=== PATIENT | female | born 2000 | race Caucasian/White ===

== ENCOUNTER 2021-01-05 10:33 | Outpatient (CLI) | payer OTHER, SELFPAY ==
[2021-01-05 12:07] LABS: Basophils Percent Auto 0.3 % (0.2-1.2); Eosinophils Absolute Auto 0.1 K/mm3 (0-0.3); Eosinophils Percent Auto 1.3 % (0-4.4); Hematocrit 38.6 % (37.0-47.0); Hemoglobin 12.9 g/dL (12.0-15.0); Immature Granulocyte Absolute 0.04 K/mm3 (0.00-0.031); Immature Granulocyte Percent A 0.4 % (0-0.5); Lymphocytes Absolute Auto 1.14 K/mm3 (0.9-3.2); Lymphocytes Percent Auto 11.2 % (18.3-44.2); Mean Corpuscular HGB Conc 33.4 g/dl (32-36); Mean Corpuscular Hemoglobin 31.5 pg (26-34); Mean Corpuscular Volume 94.4 fl (80-100); Mean Platelet Volume 10.8 fl (7.4-10.4); Monocytes Absolute Auto 0.5 K/mm3 (0.1-0.6); Monocytes Percent Auto 4.8 % (2.6-8.5); Neutrophils Absolute Auto 8.3 K/mm3 (1.3-6.7); Platelet Count Result 178 k/mm3 (150-375); Red Blood Count 4.09 M/mm3 (4.2-5.4); Red Cell Distribution Width 12.2 % (11.5-14.5); White Blood Count 10.1 K/mm3 (4.5-10.0)
[2021-01-05 12:23] LABS: Glucose 1 Hour PP 50gm Dose 112 mg/dL
[2021-01-05 13:05] LABS: HIV 1/2 Ab P24 Ag Result Negative (Negative)
[2021-01-07 09:39] LABS: Rapid Plasma Reagin Non-Reactive (NonReactive)
== END 2021-01-05 10:34 | disposition home or self-care (01) ==
PROVIDERS: PCP Pediatrics; Visit Provider Advanced Practice Midwife
DX: Z36.9 Encounter for antenatal screening, unspecified (principal); Z3A.00 Weeks of gestation of pregnancy not specified
CPT/HCPCS: 36415; 82947; 85025; 86592; 86703; 86850; G0432

== ENCOUNTER 2021-01-22 17:19 | Emergency (ER) | payer OTHER, SELFPAY ==
--- NOTE | ~2021-01-22 | XR_ITS ---
EXAMINATION: XR chest 2V 01/22/2021 17:43 INDICATION: Cough. Upper respiratory infection. PROCEDURE: 2 view chest COMPARISON: No prior studies for comparison. FINDINGS: The lungs are clear. The cardiomediastinal silhouette is within normal limits. There are no pleural effusions. There is no pneumothorax suspected. IMPRESSION: 1: NO ACUTE CARDIOPULMONARY DISEASE. Reviewed, dictated and finalized at location A. IFICATION WRITER
[2021-01-22 17:22] VITALS: BP 125/98; PULSE 110; RESP 18; TEMP 35.9; O2SAT 100
[2021-01-22 17:33] LABS: Basophils Percent Auto 0.4 % (0.2-1.2); Eosinophils Absolute Auto 0.2 K/mm3 (0-0.3); Eosinophils Percent Auto 1.5 % (0-4.4); Hematocrit 36.5 % (37.0-47.0); Hemoglobin 12.3 g/dL (12.0-15.0); Immature Granulocyte Absolute 0.07 K/mm3 (0.00-0.031); Immature Granulocyte Percent A 0.7 % (0-0.5); Lymphocytes Percent Auto 11.8 % (18.3-44.2); Mean Corpuscular HGB Conc 33.7 g/dl (32-36); Mean Corpuscular Hemoglobin 31.8 pg (26-34); Mean Corpuscular Volume 94.3 fl (80-100); Mean Platelet Volume 10.5 fl (7.4-10.4); Monocytes Absolute Auto 0.7 K/mm3 (0.1-0.6); Monocytes Percent Auto 6.4 % (2.6-8.5); Neutrophils Percent Auto 79.2 % (45.5-73.1); Platelet Count Result 154 k/mm3 (150-375); Red Blood Count 3.87 M/mm3 (4.2-5.4); Red Cell Distribution Width 12.3 % (11.5-14.5); White Blood Count 10.1 K/mm3 (4.5-10.0)
[2021-01-22 17:43] LABS: Alanine Aminotransferase 13 U/L (4-35); Albumin Level 3.7 g/dL (3.5-5.1); Alkaline Phosphatase 77 U/L (38-126); Anion Gap 5 mmol/L (8-16); Aspartate Amino Transferase 22 U/L (14-36); Bilirubin,Total 0.3 mg/dL (0.2-1.3); Blood Urea Nitrogen 9 mg/dL (7-17); Calcium 9.4 mg/dL (8.4-10.2); Carbon Dioxide 26 mmol/L (22-30); Chloride 105 mmol/L (98-107); Estimated CRCL calculation 135 ml/min; Estimated Glomerular Filt Rate > 60; Glucose 91 mg/dL (65-110); Potassium 3.6 mmol/L (3.4-5.0); Sodium 136 mmol/L (137-145)
--- NOTE | 2021-01-22 18:37 | ED.GENADULT ---
HPI - General Adult General Chief complaint: Upper Respiratory Infection Stated complaint: Wants Lungs Checked Time Seen by Provider: 01/22/21 18:02 Source: patient Mode of arrival: ambulatory Limitations: no limitations History of Present Illness HPI narrative: Patient is 20-year-old female 29 weeks G2, P0 with chief complaint of feeling short of breath when she lays flat. Patient reports when she is sitting up, walking or talking she does not notice the symptoms. However when she lays flat she feels as if her lungs cannot fully expand. Patient reports that she has expressed this to her [employer] Dr. Painter who prescribed her an inhaler. Patient denies having any fevers, chills, cough, shortness of breath, chest pain. Patient denies any wheezing or issues with her airway. Patient denies any calf pain or swelling. Patient denies any pain with respirations. Related Data Allergies Allergy/AdvReac Type Severity Reaction Status Date / Time No Known Allergies Allergy Verified 01/27/12 17:06 Review of Systems Review of Systems: CONSTITUTIONAL: Denies fever, chills, or sweats. EYES: Denies visual changes, redness, or discharge. ENT: Denies rhinorrhea, congestion, sore throat, or otalgia. CARDIOVASCULAR: Denies chest pain, palpitations, or edema. RESPIRATORY: Reports bleeding sensation when lying flat denies cough or dyspnea. GASTROINTESTINAL: Denies abdominal pain, nausea, vomiting, or diarrhea. GENITOURINARY: Denies dysuria or hematuria. SKIN: Denies rash or itching. MUSCULOSKELETAL: Denies back pain, joint pain, or myalgia. NEUROLOGIC: Denies headache, numbness, dizziness, or weakness. PSYCHIATRIC: Denies anxiety or depression. Exam Narrative: GENERAL: Well-appearing, well-nourished, and in no acute distress. HEAD: Normocephalic, atraumatic. EYES: PERRLA and EOMI. NECK: Supple. No adenopathy or masses. CHEST: Clear to auscultation. No respiratory distress. No wheezes rales or rhonchi. No tachypnea. No cough. Patient speaking in clear sentences without discomfort or distress. HEART: Regular rate and rhythm. No murmur heard. Normal peripheral pulses. EXTREMITIES: Normal range of motion. No edema or tenderness to calves. SKIN: Warm, dry, no rash. NEURO: No focal deficits. Alert and oriented x3. PSYCH: Normal mood and affect. Course Vital Signs Vital signs: Vital Signs Temperature 96.6 F L 01/22/21 17:22 Pulse Rate 110 H 01/22/21 17:22 Respiratory Rate 18 01/22/21 17:22 Blood Pressure 125/98 H 01/22/21 17:22 Pulse Oximetry 100 01/22/21 17:22 Temperature 96.6 F L 01/22/21 17:22 Pulse Rate 110 H 01/22/21 17:22 Respiratory Rate 18 01/22/21 17:22 Blood Pressure 125/98 H 01/22/21 17:22 Pulse Oximetry 100 01/22/21 17:22 Medical Decision Making MDM Narrative Medical decision making narrative: Patient is not having any signs of distress. Patient not hypoxic and satting 100% on room air. Patient has not have swelling or tenderness suggestive of DVT or PE. Patient reports she does not have any shortness of breath or difficulty breathing with ambulation. Daily times she feels as if her lungs are not fully expanding when she is lying down. Patient is 30 weeks . Patient's OB is aware. Patient disharged home to follow up with OBGYN. Vital Signs Vital Signs: Vital Signs Temperature 96.6 F L 01/22/21 17:22 Pulse Rate 110 H 01/22/21 17:22 Respiratory Rate 18 01/22/21 17:22 Blood Pressure 125/98 H 01/22/21 17:22 Pulse Oximetry 100 01/22/21 17:22 Temperature 96.6 F L 01/22/21 17:22 Pulse Rate 110 H 01/22/21 17:22 Respiratory Rate 18 01/22/21 17:22 Blood Pressure 125/98 H 01/22/21 17:22 Pulse Oximetry 100 01/22/21 17:22 Lab Data Result diagrams: 01/22/21 17:28 01/22/21 17:28 Labs: Lab Results 01/22/21 01/22/21 Range/Units 17:28 17:28 WBC 10.1 H (4.5-10.0) K/mm3 RBC 3.87 L (4.2-5.4) M/mm3 Hgb 12.3 (12
== END 2021-01-22 19:08 | disposition home or self-care (01) ==
PROVIDERS: Emergency Provider Emergency Medicine
DX: R06.02 Shortness of breath (principal); O26.93 Pregnancy related conditions, unspecified, third trimester; Z3A.29 29 weeks gestation of pregnancy
CPT/HCPCS: 36415; 71046; 80053; 85025; 99283

== ENCOUNTER 2021-03-08 00:01 | Outpatient (RCR) | payer OTHER, SELFPAY ==
[2021-01-22 17:25] VITALS: BP 116/69; PULSE 102
[2021-03-08 00:40] VITALS: BP 120/78; PULSE 85
== END 2021-04-15 08:35 | disposition home or self-care (01) ==
LOC: ANHOBOP 00:01
PROVIDERS: PCP Pediatrics; Visit Provider Student in an Organized Health Care Education/Training Program
DX: O99.891 Other specified diseases and conditions complicating pregnancy (principal); R06.00 Dyspnea, unspecified; Z3A.29 29 weeks gestation of pregnancy; Z3A.35 35 weeks gestation of pregnancy
CPT/HCPCS: 59025

== ENCOUNTER 2021-03-22 14:31 | Observation (INO) | payer OTHER, SELFPAY ==
[2021-03-22 14:56] VITALS: BP 120/74; PULSE 109
[2021-03-22 15:04] VITALS: BMI 28.6
--- NOTE | 2021-03-22 15:05 | OBADM ---
This patient, Cesia Pyle, admitted to the OB room OB Post 116 for observation. Patient/family oriented to hospital policies and general routines including ID bracelet, bed and alarms, visiting hours, pain management, procedures, bathroom and other care routines, personal items, smoking policy, room service/diet, and visiting hours. Patient/Family are encouraged to report perceived risks to care and to ask questions if they do not understand what they are told or what they should do.
[2021-03-22 15:20] LABS: Add Urine Microscopic? NO; Appearance Urine Clear (Clear); Bilirubin Urine Negative (Negative); Blood Urine Negative (Negative); Color Urine Straw (Yellow); Glucose Urine UA Negative (Negative); Ketones Urine Negative (Negative); Leukocyte Esterase Ur Negative LEU/UL (Negative); Nitrate Urine Negative (Negative); Protein Urine Negative (Negative); Specific Grav Ur 1.008 (1.001-1.035); Urobilinogen Urine Negative mg/dL (<2.0)
[2021-03-22 15:46] VITALS: TEMP 36.6
--- NOTE | 2021-03-27 05:56 | P.PNOB_ITS ---
OB - Triage/Final Diagnosis Visit Information Date of evaluation: 03/22/21 Reason for evaluation: other (r/o cystitis ) Comments/Additional reasons for admission: I have assessed the risk for this patient, Cesia Pyle, and determined that she would benefit from observation care. Evaluation Laboratory results: Laboratory Tests 03/22/21 14:52 Urine Color Straw Urine Appearance Clear Urine pH 7.0 Ur Specific [place] 1.008 Urine Protein Negative Urine Glucose (UA) Negative Urine Ketones Negative Ur Blood (Man) Negative Urine Nitrate Negative Urine Bilirubin Negative Urine Urobilinogen Negative Leukocyte Esterase Rfl Negative
== END 2021-03-22 15:55 | disposition home or self-care (01) ==
LOC: ANHOBPP 14:39
PROVIDERS: Admitting Provider Student in an Organized Health Care Education/Training Program; Visit Provider Student in an Organized Health Care Education/Training Program
DX: O26.893 Other specified pregnancy related conditions, third trimester (principal); R39.9 Unspecified symptoms and signs involving the genitourinary system; Z3A.37 37 weeks gestation of pregnancy
CPT/HCPCS: 81003; G0378; G0379

== ENCOUNTER 2021-04-03 00:23 | Outpatient (CLI) | payer OTHER, SELFPAY ==
[2021-04-03 01:01] VITALS: BP 117/73; PULSE 98
[2021-04-03 01:11] LABS: Creatinine Urine 34.3 mg/dL
[2021-04-03 01:12] LABS: Basophils Percent Auto 0.3 % (0.2-1.2); Eosinophils Absolute Auto 0.2 K/mm3 (0-0.3); Eosinophils Percent Auto 1.9 % (0-4.4); Hematocrit 38.6 % (37.0-47.0); Hemoglobin 12.9 g/dL (12.0-15.0); Immature Granulocyte Absolute 0.07 K/mm3 (0.00-0.031); Immature Granulocyte Percent A 0.6 % (0-0.5); Lymphocytes Absolute Auto 1.79 K/mm3 (0.9-3.2); Lymphocytes Percent Auto 14.2 % (18.3-44.2); Mean Corpuscular HGB Conc 33.4 g/dl (32-36); Mean Corpuscular Hemoglobin 31.2 pg (26-34); Mean Corpuscular Volume 93.2 fl (80-100); Mean Platelet Volume 10.8 fl (7.4-10.4); Monocytes Absolute Auto 0.9 K/mm3 (0.1-0.6); Monocytes Percent Auto 7.4 % (2.6-8.5); Neutrophils Absolute Auto 9.6 K/mm3 (1.3-6.7); Neutrophils Percent Auto 75.6 % (45.5-73.1); Platelet Count Result 205 k/mm3 (150-375); Red Blood Count 4.14 M/mm3 (4.2-5.4); Red Cell Distribution Width 13.3 % (11.5-14.5); White Blood Count 12.6 K/mm3 (4.5-10.0)
[2021-04-03 01:16] VITALS: BP 112/69; PULSE 94
[2021-04-03 01:21] LABS: Alanine Aminotransferase 15 U/L (4-35); Alkaline Phosphatase 165 U/L (38-126); Anion Gap 9 mmol/L (8-16); Aspartate Amino Transferase 21 U/L (14-36); Bilirubin,Total 0.3 mg/dL (0.2-1.3); Blood Urea Nitrogen 10 mg/dL (7-17); Calcium 9.5 mg/dL (8.4-10.2); Carbon Dioxide 19 mmol/L (22-30); Chloride 108 mmol/L (98-107); Estimated Glomerular Filt Rate > 60; Glucose 95 mg/dL (65-110); Sodium 136 mmol/L (137-145); Uric Acid 5.5 mg/dL (2.5-7.5)
[2021-04-03 01:23] LABS: Total Protein Urine Random 6 mg/dL; Ur Ttl Prot Creatinine Ratio 0.17 mg/mg (0-0.20)
[2021-04-03 01:24] LABS: Add Urine Microscopic? NO; Appearance Urine Clear (Clear); Bilirubin Urine Negative (Negative); Blood Urine Negative (Negative); Color Urine Straw (Yellow); Glucose Urine UA Negative (Negative); Ketones Urine Negative (Negative); Leukocyte Esterase Ur Negative LEU/UL (NEGATIVE); Nitrate Urine Negative (Negative); Protein Urine Negative (Negative); Specific Grav Ur 1.012 (1.001-1.035); Urobilinogen Urine Negative mg/dL (<2.0)
[2021-04-03 01:31] VITALS: BP 110/75; PULSE 92
--- NOTE | 2021-04-03 01:48 | PC.NURSE ---
Dr Elena notified of Headache, normal labs and BP's. Ok to give medication for headache and dc home.
[2021-04-03] MEDS: ACETAMINOPHEN/BUTALBITAL/CAFFEINE 325-50-40 MG TABLET (FIORICET) 1 TAB PO (01:57)
[2021-04-03 02:00] VITALS: BP 117/73; PULSE 101
== END 2021-04-03 02:01 | disposition home or self-care (01) ==
LOC: ANHOBOP 00:30 → ANHOBPP 04-08 06:44
PROVIDERS: Obstetrics & Gynecology; Visit Provider Student in an Organized Health Care Education/Training Program
DX: R51.9 Headache, unspecified (principal)
CPT/HCPCS: 36415; 59025; 80053; 81003; 82570; 84156; 84550; 85025; 87086; 99199; A9270

== ENCOUNTER 2021-04-08 02:15 | Observation (INO) | payer OTHER, SELFPAY ==
[2021-04-08] VITALS (7 sets, daily range): BP systolic 116–125; BP diastolic 68–88; PULSE 84–101
--- NOTE | 2021-05-06 12:07 | PM.OBTRLD ---
OB - Triage/Final Diagnosis Visit Information Comments/Additional reasons for admission: I have assessed the risk for this patient, Cesia Pyle, and determined that she would benefit from observation care. Final Diagnosis (1) False labor: Code(s): O47.9 - False labor, unspecified Status: Acute
== END 2021-04-08 04:59 | disposition home or self-care (01) ==
PROVIDERS: Admitting Provider Obstetrics & Gynecology; Visit Provider Obstetrics & Gynecology
DX: O47.9 False labor, unspecified (principal); Z3A.00 Weeks of gestation of pregnancy not specified
CPT/HCPCS: G0378; G0379

== ENCOUNTER 2021-04-08 07:27 | Inpatient (IN) | payer OTHER, SELFPAY ==
[2021-04-08] VITALS (92 sets, daily range): BP systolic 72–163; BP diastolic 52–112; PULSE 38–292; RESP 18–20; TEMP 36.4–36.9; O2SAT 96–100; BMI 28.4
--- NOTE | 2021-04-08 07:27 | LDADM ---
This patient, Cesia Pyle, was admitted to Labor/Delivery/Recovery 105 on 04/08/21 at 07:27. Plans for labor, pain management and were discussed with patient. Patient/family oriented to hospital policies and general routines including ID bracelet, bed and alarms, visiting hours, pain management, procedures, bathroom and other care routines, personal items, smoking policy, room service/diet and guest tray routines, infant security routines, and visiting hours. Patient/Family are encouraged to report perceived risks to care and to ask questions if they do not understand what they are told or what they should do. See OBIX for further documentation.
[2021-04-08] MEDS: LACTATED RINGERS 1,000 ML 125 ML IV CONT ×2 (07:43→08:19)
[2021-04-08 07:52] LABS: Basophils Percent Auto 0.2 % (0.2-1.2); Eosinophils Absolute Auto 0.2 K/mm3 (0-0.3); Eosinophils Percent Auto 1.1 % (0-4.4); Hematocrit 43.6 % (37.0-47.0); Hemoglobin 14.7 g/dL (12.0-15.0); Immature Granulocyte Absolute 0.07 K/mm3 (0.00-0.031); Immature Granulocyte Percent A 0.4 % (0-0.5); Lymphocytes Percent Auto 8.4 % (18.3-44.2); Mean Corpuscular HGB Conc 33.7 g/dl (32-36); Mean Platelet Volume 10.7 fl (7.4-10.4); Monocytes Percent Auto 5.7 % (2.6-8.5); Neutrophils Percent Auto 84.2 % (45.5-73.1); Platelet Count Result 208 k/mm3 (150-375); Red Blood Count 4.74 M/mm3 (4.2-5.4); Red Cell Distribution Width 13.2 % (11.5-14.5); White Blood Count 16.6 K/mm3 (4.5-10.0)
--- NOTE | 2021-04-08 08:23 | WPDANESEPPF ---
Anes - Initial Pre Proc Eval Date/Time: 04/08/21 08:23 Surgeon: Kyree Painter MD Pre Op Diagnosis: Labor Patient Data Age: 21 Gender: F Height: 1.65 m Weight: 77.5 kg Last Vital Signs Pulse 104 H 04/08/21 08:22 BP 149/78 H 04/08/21 08:22 Pulse Ox 100 04/08/21 08:20 Allergies Allergy/AdvReac Type Severity Reaction Status Date / Time No Known Allergies Allergy Verified 01/27/12 17:06 Home Medications Medication Instructions Recorded Confirmed Type One-A-Day -1 1 cap PO DAILY 04/05/21 04/05/21 History ferrous sulfate [Iron (ferrous 325 mg PO DAILY 04/05/21 04/05/21 History sulfate)] Laboratory Tests 04/08/21 04/08/21 04/08/21 07:47 07:47 07:47 WBC 16.6 K/mm3 H K/mm3 (4.5-10.0) RBC 4.74 M/mm3 M/mm3 (4.2-5.4) Hgb 14.7 g/dL g/dL (12.0-15.0) Hct 43.6 % % (37.0-47.0) MCV 92.0 fl fl (80-100) MCH 31.0 pg pg (26-34) MCHC 33.7 g/dl g/dl (32-36) RDW 13.2 % % (11.5-14.5) Plt Count 208 k/mm3 k/mm3 (150-375) MPV 10.7 fl H fl (7.4-10.4) Immature Gran % (Auto) 0.4 % % (0-0.5) Neut % (Auto) 84.2 % H % (45.5-73.1) Lymph % (Auto) 8.4 % L % (18.3-44.2) [place] % (Auto) 5.7 % % (2.6-8.5) Eos % (Auto) 1.1 % % (0-4.4) Baso % (Auto) 0.2 % % (0.2-1.2) Lymph # (Auto) 1.40 K/mm3 K/mm3 (0.9-3.2) [place] # (Auto) 1.0 K/mm3 H K/mm3 (0.1-0.6) Eos # (Auto) 0.2 K/mm3 K/mm3 (0-0.3) Baso # (Auto) 0.0 K/mm3 K/mm3 (0.0-0.1) Abs Immat Gran (auto) 0.07 K/mm3 H K/mm3 (0.00-0.031) Absolute Neuts (auto) 14.0 K/mm3 H K/mm3 (1.3-6.7) Absolute Nucleated RBC 0.0 K/mm3 K/mm3 (0.0-0.012) Nucleated RBC % 0.0 % % (0.0-0.2) Urine Opiates Screen Urine Methadone Screen Ur Barbiturates Screen Ur Phencyclidine Scrn Ur Amphetamine Screen U Benzodiazepines Scrn Urine Cocaine Screen U Cannabinoids Screen RPR HIV 1&2 Ab/P24 Ag 4thGn Pending Rubella IgG Antibody Pending 04/08/21 04/08/21 07:47 08:03 WBC RBC Hgb Hct MCV MCH MCHC RDW Plt Count MPV Immature Gran % (Auto) Neut % (Auto) Lymph % (Auto) [place] % (Auto) Eos % (Auto) Baso % (Auto) Lymph # (Auto) [place] # (Auto) Eos # (Auto) Baso # (Auto) Abs Immat Gran (auto) Absolute Neuts (auto) Absolute Nucleated RBC Nucleated RBC % Urine Opiates Screen Pending Urine Methadone Screen Pending Ur Barbiturates Screen Pending Ur Phencyclidine Scrn Pending Ur Amphetamine Screen Pending U Benzodiazepines Scrn Pending Urine Cocaine Screen Pending U Cannabinoids Screen Pending RPR Pending HIV 1&2 Ab/P24 Ag 4thGn Rubella IgG Antibody Patient hx anesthesia problems: none Family hx anesthesia problems: none Results Review: All pre-operative results and documents have been reviewed as part of the pre-operative evaluation. [facility] Family History Family History Other No pertinent family history Social History Social History Substance use: former Spiritual care concerns: No Anes - Eval Final PreProcedure Day of Procedure 04/08/21 08:23 Patient weight: overweight Heart: regular rate and rhythm Lungs: clear to auscultation Neurological: alert and oriented ASA classification: II Emergent: no Anesthetic plan: proceed Anesthesia type an
[2021-04-08 08:25] LABS: Amphetamine Screen Urine Negative (Negative); Barbiturate Screen Urine Positive (Negative); Benzodiazepines Screen Urine Negative (Negative); Cannabinoid Screen Urine Negative (Negative); Cocaine Screen Urine Negative (Negative); Methadone Screen Urine Negative (Negative); Opiate Screen Urine Negative (Negative); Phencyclidine Screen Urine Negative (Negative)
--- NOTE | 2021-04-08 08:33 | WPDOBADMIT ---
Obstetrics - Admit Note Admission Note: record reviewed. Additions to the history and/or subsequent changes in the physical findings follow. 21 y/o at 39 3/7 weeks here with contractions, leaking fluid. GBS neg. On Fioricet for intermittent headaches. Had elevated bp in the office over the last few weeks, but preeclampsia labs have been negative. AVSS BP 140-150/80-90 NST reactive TOCO: contractions every 3-5 min ABD soft, nontender, gravid, vertex EXT nontender Cervix 4/50/-2. Gross ROM. Meconium-stained fluid. AROM forebag. Vertex. A: IUP at term with SROM / labor. Meconium. P: Augment labor as needed. Anticipate .
[2021-04-08 08:43] LABS: HIV 1/2 Ab P24 Ag Result Negative (Negative)
[2021-04-08 08:55] LABS: Alanine Aminotransferase 15 U/L (4-35); Albumin Level 4.4 g/dL (3.5-5.1); Alkaline Phosphatase 206 U/L (38-126); Anion Gap 8 mmol/L (8-16); Aspartate Amino Transferase 25 U/L (14-36); Bilirubin,Total 0.6 mg/dL (0.2-1.3); Blood Urea Nitrogen 12 mg/dL (7-17); Calcium 9.7 mg/dL (8.4-10.2); Carbon Dioxide 21 mmol/L (22-30); Chloride 106 mmol/L (98-107); Estimated CRCL calculation 130 ml/min; Estimated Glomerular Filt Rate > 60; Glucose 99 mg/dL (65-110); Sodium 135 mmol/L (137-145); Uric Acid 6.5 mg/dL (2.5-7.5)
[2021-04-08 09:28] LABS: Rubella IgG Antibody 8.5 IU/ML
[2021-04-08] MEDS: OXYTOCIN 30 UNITS/NS 500 ML 30 UNITS/500 ML BAG 6 UNITS IV CONT (13:41)
--- NOTE | 2021-04-08 13:56 | P.PCNOB_ITS ---
OB - Delivery Note Procedure Delivery date: 04/08/21 Procedure: Induction method: none Delivery monitor: external FHT and external uterine Route of delivery: Laceration Description: Periurethral and Perineal - 2nd Degree Delivery repair: vicryl (3-0) Quantitative Blood Loss (ml): 55 Anesthesia type: Epidural Disposition: PACU Complications: None Narrative: 21 y/o at 39 3/7 weeks gestation who presented to the hospital with complaint of contractions and leakage of brown fluid. SROM was confirmed. Amniotomy of a forebag was performed with return of thick meconium fluid. She received an epidural for pain control. Her labor progressed and her cervix dilated completely. She pushed with good effort and delivered the infant's head to the perineum, followed by the body. The nose and mouth were bulb suctioned. After a delay, the cord was clamped and cut. The infant was handed off the field. Cord blood was collected. The placenta delivered spontaneously and was grossly normal in appearance. The usual 3 vessel cord was noted. A second degree midline perineal laceration was sustained. This was reapproximated using 3 0 Vicryl in the usual layered fashion. Bilateral periurethral lacerations were reapproximated using single, interrupted figure of eight sutures of 3-0 vicryl. Excellent hemostasis resulted as did excellent reapproximation of the normal anatomy. Needle and instrument counts were correct. The patient was taken to recovery room in stable condition. The went to the nursery. I was present and scrubbed for the entire delivery. [place] Baby Date of : 04/08/21 Time of : 13:35 Weeks of gestation at delivery: 39 Infant gender: Male Weight (pounds): 6 Weight (ounces): 7 presentation: vertex position: Right Occiput Anterior Placenta delivery description: Spontaneous and Normal Configuration cord vessel description: 3 Vessels and Delayed Cord Clamping score one minute: 8 score five minutes: 7 score ten minutes: 8
--- NOTE | 2021-04-08 13:59 | PM.OBDSVD ---
DS: Admitting Diagnosis Discharge Date 04/10/21 Admitting Diagnosis SROM at 39 3/7 weeks DS: Discharge Diagnosis Discharge Diagnosis (1) (normal spontaneous vaginal delivery): Code(s): O80 - Encounter for full-term uncomplicated delivery Status: Acute OB - DS: Summary OB Procedures : None OB Procedures Intrapartum: Spontaneous Vag Delivery OB Procedures: : None DS: Data Data Completed and Pending Labs on day of discharge: Labs from last 24 hours 04/08/21 04/08/21 04/08/21 08:03 07:47 07:47 WBC RBC Hgb Hct MCV MCH MCHC RDW Plt Count MPV Immature Gran % (Auto) Neut % (Auto) Lymph % (Auto) [place] % (Auto) Eos % (Auto) Baso % (Auto) Lymph # (Auto) [place] # (Auto) Eos # (Auto) Baso # (Auto) Abs Immat Gran (auto) Absolute Neuts (auto) Absolute Nucleated RBC Nucleated RBC % Sodium Potassium Chloride Carbon Dioxide Anion Gap BUN Creatinine Estim Creat Clear Calc Estimated GFR Glucose Uric Acid Calcium Total Bilirubin AST ALT Alkaline Phosphatase Total Protein Albumin Urine Opiates Screen Negative Urine Methadone Screen Negative Ur Barbiturates Screen Positive A Ur Phencyclidine Scrn Negative Ur Amphetamine Screen Negative U Benzodiazepines Scrn Negative Urine Cocaine Screen Negative U Cannabinoids Screen Negative RPR Pending HIV 1&2 Ab/P24 Ag 4thGn Rubella IgG Antibody Blood Type A Positive Antibody Screen Negative 04/08/21 04/08/21 04/08/21 07:47 07:47 07:47 WBC 16.6 H RBC 4.74 Hgb 14.7 Hct 43.6 MCV 92.0 MCH 31.0 MCHC 33.7 RDW 13.2 Plt Count 208 MPV 10.7 H Immature Gran % (Auto) 0.4 Neut % (Auto) 84.2 H Lymph % (Auto) 8.4 L [place] % (Auto) 5.7 Eos % (Auto) 1.1 Baso % (Auto) 0.2 Lymph # (Auto) 1.40 [place] # (Auto) 1.0 H Eos # (Auto) 0.2 Baso # (Auto) 0.0 Abs Immat Gran (auto) 0.07 H Absolute Neuts (auto) 14.0 H Absolute Nucleated RBC 0.0 Nucleated RBC % 0.0 Sodium Potassium Chloride Carbon Dioxide Anion Gap BUN Creatinine Estim Creat Clear Calc Estimated GFR Glucose Uric Acid Calcium Total Bilirubin AST ALT Alkaline Phosphatase Total Protein Albumin Urine Opiates Screen Urine Methadone Screen Ur Barbiturates Screen Ur Phencyclidine Scrn Ur Amphetamine Screen U Benzodiazepines Scrn Urine Cocaine Screen U Cannabinoids Screen RPR HIV 1&2 Ab/P24 Ag 4thGn Negative Rubella IgG Antibody 8.5 L Blood Type Antibody Screen 04/08/21 07:46 WBC RBC Hgb Hct MCV MCH MCHC RDW Plt Count MPV Immature Gran % (Auto) Neut % (Auto) Lymph % (Auto) [place] % (Auto) Eos % (Auto) Baso % (Auto) Lymph # (Auto) [place] # (Auto) Eos # (Auto) Baso # (Auto) Abs Immat Gran (auto) Absolute Neuts (auto) Absolute Nucleated RBC Nucleated RBC % Sodium 135 L Potassium 4.0 Chloride 106 Carbon Dioxide 21 L Anion Gap 8 BUN 12 Creatinine 0.60 L Estim Creat Clear Calc 130 Estimated GFR > 60 Glucose 99 Uric Acid 6.5 Calcium 9.7 Total Bilirubin 0.6 AST 25 ALT 15 Alkaline Phosphatase 206 H Total Protein 8.0 Albumin 4.4 Urine Opiates Screen Urine Methadone Screen Ur Barbiturates Screen Ur Phencyclidine Scrn Ur Amphetamine Screen U Benzodiazepines Scrn Urine Cocaine Screen U Cannabinoids Screen RPR HIV 1&2 Ab/P24 Ag 4thGn Rubella IgG Antibody Blood Type Antibody Screen Discharge Plan Discharge Attending physician on discharge: Erick Newman Discharging Clinician: Erick Newman Patient Disposition: Home, Self-Care Activity: pelvic rest Diet: regular Discharge Instructions: Education: Mom and Baby Guide Given to: Mother Follow-Up:
[2021-04-08] MEDS: OXYTOCIN 30 UNITS/NS 500 ML 30 UNITS/500 ML BAG 125 UNITS IV CONT (14:18)
[2021-04-08] MEDS: BENZOCAINE 20% AER SPR (*SP) 56 GM CAN 1 SPRAY TOPICAL (15:16)
[2021-04-08] MEDS: WITCH HAZEL 40 PADS 1 PAD TOPICAL (15:16)
[2021-04-08] MEDS: IBUPROFEN 600 MG TABLET PO (15:16)
--- NOTE | 2021-04-08 16:20 | PC.NURSE ---
Patient transferred to post room #285 per wheelchair from labor and delivery. Support person present. Oriented to unit, room, information board, rooming in, admission packet and security measures. Patient verbalizes understanding.
[2021-04-09] MEDS: DOCUSATE SODIUM 100 MG CAPSULE PO ×2 (01:42→06:49)
[2021-04-09 05:20] VITALS: BP 90/44; PULSE 102; RESP 18; TEMP 36.6; O2SAT 98
[2021-04-09 05:44] LABS: Hematocrit 33.8 % (37.0-47.0); Hemoglobin 11.6 g/dL (12.0-15.0)
[2021-04-09 06:02] LABS: Rapid Plasma Reagin Non-Reactive (NonReactive)
[2021-04-09] MEDS: IBUPROFEN 600 MG TABLET PO ×3 (06:48→20:02)
[2021-04-09] MEDS: ACETAMINOPHEN 325 MG TABLET 650 MG PO ×3 (06:49→21:30)
[2021-04-09 06:50] VITALS: BP 116/78; PULSE 95; RESP 16; O2SAT 100
--- NOTE | 2021-04-09 09:07 | WPDANLDPN2 ---
Anes-Prog Note L&D Date/Time: 04/09/21 09:07 Comfortable throughout: labor and delivery Neuraxial method: epidural Epidural/Spinal procedure site: clean & non-tender Neuro status: Neuro function grossly intact. Cardiovascular status: normal Respiratory status: normal Airway patency: baseline Mental status: baseline Post-Op hydration status: normal Vital Signs: Last Vital Signs Temp 97.8 F 04/09/21 05:20 Pulse 95 04/09/21 06:50 Resp 16 04/09/21 06:50 BP 116/78 04/09/21 06:50 Pulse Ox 100 04/09/21 06:50 Pain score (VAS): 03/11 Patient feedback: Patient satisfied with anesthetic care.
[2021-04-09 11:48] VITALS: BP 116/78; PULSE 111; RESP 18; TEMP 36.6; O2SAT 99
--- NOTE | 2021-04-09 12:54 | PM.OBPNVD ---
OB - PN: Subj Subjective Date/time seen: 04/09/21 12:54 Patient comments: no complaints, pain well controlled and tolerating diet [place] feeding status: exclusively breast feeding Narrative: patient doing well this AM. No complaints. Pain is well controlled. She reports minimal bleeding. She is ambulating and voiding without difficulty. She is tolerating PO. She denies N/V, fever, chills. OB - PN: Obj Data Labs CBC & Chem 7: 04/09/21 04:12 04/08/21 07:46 Labs: Laboratory Results - last 24 hr 04/08/21 04/09/21 07:47 04:12 Hgb 11.6 L D Hct 33.8 L RPR Non-reactive OB - PN A/P Plan day: 1 Plan: routine care Comments: patient doing well H/H stable plan for infant circumcision today. Risks, benefits, alternatives discussed. consent obtained continue routine care Time Spent With Patient Time: Total time spent is greater than 50% in coordination of care (as documented) at patient's floor/unit and/or counseling patient: Time with patient: less than 15 minutes Review of Systems Review of Systems: All systems reviewed & are unremarkable except as noted in HPI and below Exam Const: General: comfortable and no acute distress Resp: Effort & Inspection: normal respiratory effort Cardio: Rate: regular rate GI: GI Palp: Yes Soft to palpation and No Tenderness to palpation present (GI) Auscultation: normal bowel sounds Other: fundus firm and below umbilicus. Psych: Affect: normal affect
[2021-04-09] MEDS: TETANUS,DIPHTHERIA,AC PERTUSSIS ADULT (0.5 ML) BOOSTRIX IM (17:00)
[2021-04-09 19:35] VITALS: BP 111/71; PULSE 93; RESP 18; TEMP 36.8; O2SAT 99
[2021-04-10] MEDS: ACETAMINOPHEN 325 MG TABLET 650 MG PO ×2 (04:51→11:59)
--- NOTE | 2021-04-10 09:00 | PC.NURSE ---
Patient viewed the discharge video Mother & Baby Care, The First Two Weeks . Patient was given the opportunity and encouraged to ask questions. Patient verbalized understanding of information shared and has been given the mother/baby guide for home reference.
--- NOTE | 2021-04-10 09:05 | PM.OBPNVD ---
OB - PN: Subj Subjective Date/time seen: 04/10/21 09:05 Narrative: Pain OK. Would like to go home. OB - PN: Obj Data Labs CBC & Chem 7: 04/09/21 04:12 04/08/21 07:46 OB - PN A/P Plan Comments: A: PPD#2, doing well. P: Home to f/u 6 weeks. Exam Psych: Other: AVSS ABD soft, nontender, fundus firm EXT nontender
[2021-04-10 09:26] VITALS: BP 111/63; PULSE 91; RESP 18; TEMP 36.5; O2SAT 100
[2021-04-10] MEDS: DOCUSATE SODIUM 100 MG CAPSULE PO (09:26)
[2021-04-10] MEDS: IBUPROFEN 600 MG TABLET PO (09:26)
[2021-04-10] MEDS: MULTIVIT/MIN/PREN/FOL AC/IRON TABLET 1 TAB PO (09:27)
[2021-04-10] MEDS: MEASLES,MUMPS,RUBELLA VACCINE 0.5 ML VIAL SUB-Q (11:51)
--- NOTE | 2021-04-10 12:00 | PC.NURSE ---
Pt received discharge instructions per protocol and verbalized understanding of such care.
--- NOTE | 2021-04-10 12:40 | PC.NURSE ---
PT discharged to home ambulated to waiting car accompanied by significant other and infant. Follow up appts confirmed
--- NOTE | 2021-04-10 13:25 | PC.NURSE ---
Addendum entered by Benja Mcintyre RN 04/10/21 13:26: actual time was 0800 Original Note: PT introductions made and plan of care discussed per post , pain management, bottle feeding, daily care activities and pending discharge to home. PT and spouse both recipients of such instructions. no barriers to learning identified and pt received instructions per one to one discussion, mom baby care guide and demonstrations for this shift. Pt verbalized understanding of such care.
[2021-04-12 12:08] VITALS: BP 107/70; PULSE 117; RESP 20; TEMP 36.7; O2SAT 100
== END 2021-04-10 12:40 | disposition home or self-care (01) | DRG 560 ==
LOC: ANHLDR 14:00 → ANHOB2 04-09 10:19 → ANHLDR 04-11 10:39 → ANHOB2 04-11 10:39
PROVIDERS: Admitting Provider Student in an Organized Health Care Education/Training Program; Visit Provider Obstetrics & Gynecology
DX: O77.0 Labor and delivery complicated by meconium in amniotic fluid (principal); O70.1 Second degree perineal laceration during delivery; O13.4 Gestational [pregnancy-induced] hypertension without significant proteinuria, complicating childbirth; O76 Abnormality in fetal heart rate and rhythm complicating labor and delivery; O71.82 Other specified trauma to perineum and vulva; Z3A.39 39 weeks gestation of pregnancy; Z37.0 Single live birth; O99.324 Drug use complicating childbirth; F13.90 Sedative, hypnotic, or anxiolytic use, unspecified, uncomplicated
CPT/HCPCS: 36415; 80053; 80307; 84550; 85014; 85018; 85025; 86592; 86703; 86762; 86850; 86900; 86901; 88307; 90710; 90715; A9270; G0432; J2590; J2795; J7120

== ENCOUNTER 2023-08-29 13:52 | Emergency (ER) | payer OTHER, SELFPAY ==
--- NOTE | ~2023-08-29 | CT_ITS ---
EXAMINATION: CT facial bones w con DATE: 08/29/2023 15:33 INDICATION: Dental pain. Dental extraction today. TECHNIQUE: Computed tomography (CT) of the facial bones and maxillofacial region was performed with 7 5 mL Omnipaque 350 intravenous contrast. Automated exposure control and iterative reconstruction tech Augmentque were employed. The dose-length product was 266.63 mGy-cm. COMPARISON: None. FINDINGS: There is rightward deviation of the nasal septum. No fracture. The paranasal sinuses are cl ear. The mastoid air cells are normal. There are changes of extraction of all of the mandibular teeth . There are carious lesions of all of the remaining maxillary teeth. IMPRESSION: 1. Extraction of all of the mandibular teeth. 2. Carious lesions of all of the remaining maxillary teeth. Reviewed, dictated and finalized at location E.
[2023-08-29 13:54] VITALS: BP 110/71; PULSE 105; RESP 20; TEMP 36.8; O2SAT 99
[2023-08-29 14:31] VITALS: BP 124/82; PULSE 91; RESP 16; O2SAT 100
[2023-08-29 14:36] LABS: Basophils Percent Auto 0.7 % (0.2-1.2); Eosinophils Absolute Auto 0.1 K/mm3 (0-0.3); Eosinophils Percent Auto 1.5 % (0-4.4); Hematocrit 38.9 % (37.0-47.0); Hemoglobin 13.2 g/dL (12.0-15.0); Immature Granulocyte Absolute 0.01 K/mm3 (0.00-0.031); Immature Granulocyte Percent A 0.2 % (0-0.5); Lymphocytes Absolute Auto 0.99 K/mm3 (0.9-3.2); Mean Corpuscular HGB Conc 33.9 g/dl (32-36); Mean Corpuscular Hemoglobin 29.4 pg (26-34); Mean Corpuscular Volume 86.6 fl (80-100); Mean Platelet Volume 11.3 fl (7.4-10.4); Monocytes Absolute Auto 0.4 K/mm3 (0.1-0.6); Neutrophils Absolute Auto 4.3 K/mm3 (1.3-6.7); Neutrophils Percent Auto 74.6 % (45.5-73.1); Platelet Count Result 146 k/mm3 (150-375); Red Blood Count 4.49 M/mm3 (4.2-5.4); Red Cell Distribution Width 12.1 % (11.5-14.5); White Blood Count 5.8 K/mm3 (4.5-10.0)
[2023-08-29] MEDS: SODIUM CHLORIDE 0.9% IV 1,000 ML 999 ML IV CONT (14:36)
[2023-08-29] MEDS: HYDROmorphone HCL INJ (*CRX) 1 MG/ML SYR 0.5 MG IV PUSH (14:36)
[2023-08-29 14:45] LABS: Alanine Aminotransferase 13 U/L (6-35); Albumin Level 4.9 g/dL (3.5-5.1); Alkaline Phosphatase 72 U/L (38-126); Anion Gap 13 mmol/L (4-12); Aspartate Amino Transferase 25 U/L (14-36); Bilirubin,Total 0.9 mg/dL (0.2-1.3); Blood Urea Nitrogen 8 mg/dL (7-17); Calcium 9.6 mg/dL (8.4-10.2); Carbon Dioxide 20 mmol/L (22-30); Chloride 109 mmol/L (98-107); Estimated CRCL calculation 91 ml/min; Estimated Glomerular Filt Rate > 60; Glucose 83 mg/dL (65-110); Potassium 3.5 mmol/L (3.4-5.0); Sodium 142 mmol/L (137-145)
--- NOTE | 2023-08-29 14:45 | ED.DENTAL ---
HPI - Dental/Oral General Chief complaint: Dental/Oral Stated complaint: need mouth xrays Time Seen by Provider: 08/29/23 14:05 History of Present Illness HPI Narrative: 23-year-old female presents to the emergency department for evaluation for dental pain. Patient has had multiple teeth extracted over the last 2 weeks. Patient had addition teeth pulled today and since has persistent jaw pain. Patient is currently on antibiotics. Patient presented emergency department concern for dental abscess or jaw fracture. Reports she was not provided any medication for pain control by the dentist Related Data Home Medications Medication Instructions Recorded Confirmed vit 168-iron 27 mg-folic 1 cap PO DAILY 04/05/21 04/08/21 acid 800 mcg-omega3 235 mg capsule (One-A-Day -1) [id number] 1 tablet PO PRN 04/08/21 04/08/21 50 mg-325 mg-40 mg tablet Allergies Allergy/AdvReac Type Severity Reaction Status Date / Time No Known Allergies Allergy Verified 08/29/23 14:02 Review of Systems Review of Systems: All systems reviewed & are unremarkable except as noted in HPI and below PMFSH Family History Family History Other No pertinent family history Social History Social History Smoking status: Current some day smoker Tobacco type: cigarettes Second hand tobacco smoke exposure: Yes Substance use: former Spiritual care concerns: No Exam Narrative: APPEARANCE: Well appearing, no pain, no distress, well-nourished. HEAD: normocephalic, atraumatic. EYES: PERRLA/EOMI, conjunctivae clear. NOSE: Normal no drainage EARS:TMS clear with good light reflex. THROAT: Pharynx clear, no exudate. Mouth: Multiple extraction sites are well appearing with no active bleeding and no dry socket NECK: Supple. No adenopathy, no masses. RESPIRATORY: Airway patent, respirations nonlabored. Clear to auscultation bilaterally, no rales, rhonchi, wheezing. CARDIOVASCULAR: Regular rate and rhythm without murmurs rubs or gallops. ABDOMINAL: Soft, nontender, nondistended, normal bowel sounds MUSCULOSKELETAL: Moves all extremities. Strength/ROM intact, No edema, No calf tenderness. NEURO: Alert. Cranial nerves II through XII intact. Grossly intact Course Vital Signs Vital signs: Vital Signs Temperature 98.3 F 08/29/23 13:54 Pulse Rate 105 H 08/29/23 13:54 Respiratory Rate 20 08/29/23 13:54 Blood Pressure 110/71 08/29/23 13:54 Pulse Oximetry 99 08/29/23 13:54 Oxygen Delivery Room Air 08/29/23 13:54 Temperature 98.3 F 08/29/23 13:54 Pulse Rate 90 08/29/23 16:09 Respiratory Rate 16 08/29/23 16:09 Blood Pressure 124/82 08/29/23 14:31 Pulse Oximetry 100 08/29/23 16:09 Oxygen Delivery Room Air 08/29/23 13:54 MDM - Dental/Oral MDM Narrative Medical decision making narrative: A 23-year-old female presents to the emergency department for evaluation for dental pain after tooth extraction. no evidence of dry socket, no active hemorrhage. Patient is afebrile with no leukocytosis and a stable hemoglobin. No significant electrolyte. CT facial bones was ordered and showed no evidence of abscess or mental fracture. Patient will be discharged home with instructions to continue taking her antibiotics but will also be provided additional medication for pain control. Differential Diagnosis Differential diagnosis: Likely gingival abscess, dental caries, toothache and fracture of tooth Lab Data Attestation: I reviewed the patient's lab results. 08/29/23 14:25 08/29/23 14:25 Labs: Lab Results 08/29/23 Range/Units 14:25 WBC 5.8 (4.5-10.0) K/mm3 RBC 4.49 (4.2-5.4) M/mm3 Hgb 13.2 (12.0-15.0) g/dL Hct 38.9 (37.0-47.0) % MCV 86.6 (80-100) fl MCH 29.4 (26-34) pg MCHC 33.9 (32-36) g/dl RDW
[2023-08-29 16:09] VITALS: PULSE 90; RESP 16; O2SAT 100
== END 2023-08-29 16:09 | disposition home or self-care (01) ==
PROVIDERS: Emergency Provider Emergency Medicine
DX: K08.409 Partial loss of teeth, unspecified cause, unspecified class (principal); R68.84 Jaw pain; F17.210 Nicotine dependence, cigarettes, uncomplicated
CPT/HCPCS: 36415; 70487; 80053; 85025; 96361; 96374; 99284; J1170; J7030; Q9967